=== PATIENT | female | born 1980 | race Two or more races ===

== ENCOUNTER 2022-01-18 00:55 | Emergency (ER) | payer OTHER ==
[2022-01-18 01:00] VITALS: BP 138/83; PULSE 85; RESP 17; TEMP 98.1; BMI 32.1
[2022-01-18] MEDS ORDERED: IBUPROFEN 600 MG TABLET (FP) PO ONE (01:07)
[2022-01-18] MEDS ORDERED: METHOCARBAMOL 500 MG TABLET PO ONE (01:16)
== END 2022-01-18 01:53 | disposition home or self-care (01) ==
LOC: JER 00:55
DX: M79.10 Myalgia, unspecified site (principal)
CPT/HCPCS: 99283-25